=== PATIENT | male | born 1935 | race Caucasian/White ===

== ENCOUNTER → 2018-01-10 10:55 | Outpatient (CLI) | payer MEDICARE, SELFPAY ==
[2018-01-10 12:42] LABS: Add Manual Diff / Slide Review NO; Basophils Percent Auto 0.6 % (0-2); Hematocrit 39.2 % (41-53); Hemoglobin 13.6 g/dL (13.5-17.5); Lymphocytes Percent Auto 27.8 % (25-40); Mean Corpuscular HGB Conc 34.5 % (30-36); Mean Corpuscular Hemoglobin 30.5 PG (26-34); Mean Corpuscular Volume 88.4 fL (80-100); Monocytes Percent Auto 10.1 % (3-14); Neutrophils Absolute Auto 3900 /uL (3000-5900); Neutrophils Percent Auto 60.5 % (50-75); Platelet Count 205 X10^3/uL (150-400); Red Blood Cell Count 4.44 X10^6/uL (4.5-5.9); Red Cell Distribution Width 13.5 % (11.6-14.8); White Blood Cell Count 6.4 X10^3/uL (4.5-11.0)
== END ==
PROVIDERS: PCP Internal Medicine; Visit Provider Internal Medicine
DX: D64.9 Anemia, unspecified (principal); R97.20 Elevated prostate specific antigen [PSA]
CPT/HCPCS: 36415; 85025; G0103

== ENCOUNTER → 2018-01-31 14:35 | Outpatient (CLI) | payer MEDICARE, SELFPAY | PROVIDERS: PCP Internal Medicine; Visit Provider Internal Medicine | DX: R97.20 Elevated prostate specific antigen [PSA] (principal) | CPT/HCPCS: 36415; 84153 ==

== ENCOUNTER 2018-11-01 13:02 | Emergency (ER) | payer MEDICARE, SELFPAY ==
[2018-11-01 13:24] VITALS: BP 139/71; PULSE 66; RESP 17; TEMP 30.6; O2SAT 99
[2018-11-01 13:44] LABS: RBC Urine None Seen (0-5/HPF)
[2018-11-01 14:02] LABS: Bacteria Urine Occasional (0-1); Hyaline Casts Urine 1-5/LPF; WBC Urine 0-1/HPF (0-5/HPF)
[2018-11-01 14:03] LABS: Culture Indicated Urine Cult Not Indicated; Mucus Urine 1+ (Negative)
--- NOTE | 2018-11-01 14:28 | ED.MALEGU ---
HPI - Male Genitourinary <Angela Avendaño PA-C - Last Filed: 11/01/18 17:29> General Chief complaint: Urogenital-Male Stated complaint: States possible uti; frequent urination and burnin Time Seen by Provider: 11/01/18 14:28 Source: patient Mode of arrival: ambulatory Limitations: no limitations History of Present Illness HPI Narrative: This 82-year-old male comes to ED secondary to urinary frequency and burning. This started about a week ago, and he had similar symptoms last year and thought he had a UTI. He had 5 doses of leftover Bactrim and started on that and states that symptoms were significantly improving, but started to come back again in the last day or 2 after he ran out of that. He denies any fever, chills, sweats, he denies any nausea or vomiting. He has not had any hematuria. He states that he thought he should have his urine checked and wondered whether he needs to continue the antibiotic. He denies any other complaints or concerns today. Related Data Home Medications Medication Instructions Recorded Confirmed aspirin 325 mg PO QDAY #0 12/08/16 carvedilol [Coreg] 12.5 mg PO BID #0 12/08/16 carvedilol [Coreg] 25 mg PO BID #0 12/08/16 cyclobenzaprine 5 mg PO DAILY #0 12/08/16 lisinopril 20 mg PO QDAY #0 12/08/16 lisinopril-hydrochlorothiazide 1 tab PO QDAY #0 12/08/16 magnesium oxide 400 mg PO #0 12/08/16 minoxidil 10 mg PO QDAY #0 12/08/16 simvastatin 40 mg PO HS #0 12/08/16 Previous Rx's Medication Instructions Recorded nitrofurantoin monohyd/m-cryst 100 mg PO BID #10 cap 12/08/16 [Macrobid] sulfamethoxazole-trimethoprim 1 tab PO Q12H #10 tab 11/01/18 [Bactrim DS] Allergies Allergy/AdvReac Type Severity Reaction Status Date / Time No Known Allergies Allergy Uncoded 10/30/17 11:56 Review of Systems <Angela Avendaño PA-C - Last Filed: 11/01/18 17:29> Review of Systems ROS Unobtainable: All systems reviewed & are unremarkable except as noted in HPI and below PFSH <Angela Avendaño PA-C - Last Filed: 11/01/18 17:29> Medical History (Updated 11/01/18 @ 14:53 by Angela Avendaño PA-C) No pertinent family history (Chronic) BPH (benign prostatic hyperplasia) (Chronic) HTN (hypertension) (Chronic) Surgical History (Updated 11/01/18 @ 14:53 by Angela Avendaño PA-C) No pertinent past surgical history (Chronic) Social History Smoking Status: Never smoker Social History Smoking Status: Never smoker Exam <Angela Avendaño PA-C - Last Filed: 11/01/18 17:29> Narrative Exam Narrative: GENERAL APPEARANCE: Patient sitting comfortably, in no distress. LUNGS: Clear to auscultation bilaterally. HEART: Rate and rhythm regular without murmur, normal S1 and S2, no S3 or S4. ABDOMEN: Soft, NT, ND, +BS x 4 quadrants, no CVAT. Initial Vital Signs Initial Vital Signs: Vital Signs Temperature 87.1 F L 11/01/18 13:24 Pulse Rate 66 11/01/18 13:24 Respiratory Rate 17 11/01/18 13:24 Blood Pressure 139/71 11/01/18 13:24 Pulse Oximetry 99 11/01/18 13:24 <Anastacio Hernandez DO - Last Filed: 11/01/18 18:08> Initial Vital Signs Initial Vital Signs: Vital Signs Temperature 87.1 F L 11/01/18 13:24 Pulse Rate 66 11/01/18 13:24 Respiratory Rate 17 11/01/18 13:24 Blood Pressure 139/71 11/01/18 13:24 Pulse Oximetry 99 11/01/18 13:24 Course <Angela Avendaño PA-C - Last Filed: 11/01/18 17:29> Orders Ordered: ED Orders 11/01/18 13:43 Urine Microscopic Stat 11/01/18 14:30 Urine Culture Stat Vital Signs - 8 hr 11/01/18 13:24 11/01/18 14:54 Temperature 87.1 F L Pulse Rate 66 60 Respiratory Rate 17 20 Blood Pressure 139/71 148/79 H Pulse Oximetry 99 98 <Anastacio Hernandez DO - Last Filed: 11/01/18 18:08> Orders Ordered: ED Orders 11/01/18 13:43 Urine Microscopic Stat 11/01/18 14:30 Urine Culture Stat Vital Signs - 8 hr 11/01/18 13:24 11/01/18 14:54 Temperature 87.1 F L Pulse Rate 66 60 Respiratory Rate 17 20 Blood Pressure 139/71 148/79 H Pulse Oximetry 99 98 MDM - Male Genitourinary <Angela Avendaño PA-C - Last Filed: 11/01/18 17:29> Lab Data Lab Results 11/01/18 Range/Units 13:43 Urine RBC None seen (0-5/HPF) Urine WBC 0-1/hpf (0-5/HPF) Urine Bacteria Occasional (0-1) (None) Hyaline Casts 1-5/lpf (None) Urine Mucus 1+ H (Negative) Ur Culture Indicated? Cult not indicated Urine Dip Bedside Urine Glucose Negative Bedside Urine Bilirubin - Negative Bedside Urine Ketone - Negative Urine Specific [place] 1.025 Bedside Urine Occult Blood - Negative Bedside Urine pH 6.0 Bedside Urine Protein + 30 Bedside Urine Urobilinogen +/- 1mg Bedside Urine Nitrite - Negative Bedside Urine Leukocytes - Negative Esterase <Anastacio Hernandez DO - Last Filed: 11/01/18 18:08> Lab Data Lab Results 11/01/18 Range/Units 13:43 Urine RBC None seen (0-5/HPF) Urine WBC 0-1/hpf (0-5/HPF) Urine Bacteria Occasional (0-1) (None) Hyaline Casts 1-5/lpf (None) Urine Mucus 1+ H (Negative) Ur Culture Indicated? Cult not indicated Urine Dip Bedside Urine Glucose Negative Bedside Urine Bilirubin - Negative Bedside Urine Ketone - Negative Urine Specific [place] 1.025 Bedside Urine Occult Blood - Negative Bedside Urine pH 6.0 Bedside Urine Protein + 30 Bedside Urine Urobilinogen +/- 1mg Bedside Urine Nitrite - Negative Bedside Urine Leukocytes - Negative Esterase Discharge Plan Departure Patient Disposition: Home Clinical Impression: Urinary tract infection Qualifiers: Urinary tract infection type: acute cystitis Hematuria presence: without hematuria Qualified Code(s): N30.00 - Acute cystitis without hematuria Discharge Date/Time: 11/01/18 14:55 Interventions: ED Discharge Assessment Last Done: 11/01/18 14:54 Instructions: DI for Urinary Tract Infection (UTI) Activity Restrictions/Additional Instructions: Since you have partially treated the infection with the antibiotic that you started, it is possible that this is the reason we did not see bacteria in your urine today. Since it seemed to be helping your symptoms, I have sent in a prescription to [facility] for you to continue for 5 days. Please follow-up with your PCP if your symptoms are not resolved in the next few days on the antibiotic. Please return if you have any new symptoms such as abdominal pain, fever, or vomiting. It was nice to see you today, please give my best to Judith! Prescriptions: New sulfamethoxazole-trimethoprim [Bactrim DS] 800-160 mg tablet 1 tab PO Q12H Qty: 10 RF: 0 No Action carvedilol [Coreg] 25 MG tablet 25 mg PO BID Qty: 0 RF: 0 carvedilol [Coreg] 25 MG tablet 12.5 mg PO BID Qty: 0 RF: 0 aspirin 325 MG tablet 325 mg PO QDAY Qty: 0 RF: 0 minoxidil 10 MG tablet 10 mg PO QDAY Qty: 0 RF: 0 lisinopril-hydrochlorothiazide 20 MG/25 MG tablet 1 tab PO QDAY Qty: 0 RF: 0 lisinopril 20 MG tablet 20 mg PO QDAY Qty: 0 RF: 0 simvastatin 40 MG tablet 40 mg PO HS Qty: 0 RF: 0 cyclobenzaprine 5 MG tablet 5 mg PO DAILY Qty: 0 RF: 0 magnesium oxide 400 MG capsule 400 mg PO Qty: 0 RF: 0 nitrofurantoin monohyd/m-cryst [Macrobid] 100 MG capsule 100 mg PO BID Qty: 10 RF: 0 Referrals: Siddhartha Ferrell MD [Primary Care Provider] - <Anastacio Hernandez DO - Last Filed: 11/01/18 18:08> Cosign ED Attending Rhondaature Attestation: I was immediately available in the department for consultation. Documentation has been reviewed. I agree with assessment and plan.
[2018-11-01 14:54] VITALS: BP 148/79; PULSE 60; RESP 20; O2SAT 98
== END 2018-11-01 14:55 | disposition home or self-care (01) ==
PROVIDERS: Emergency Medicine; Emergency Provider Internal Medicine; PCP Internal Medicine
DX: N30.00 Acute cystitis without hematuria (principal)
CPT/HCPCS: 81003; 81015; 87086; 99282; 99283

== ENCOUNTER → 2019-01-13 11:18 | Outpatient (CLI) | payer MEDICARE, SELFPAY ==
--- NOTE | 2019-01-13 | DI.RAD.S_ITS ---
PROCEDURE: XR FINGER RT MIN 2V INDICATIONS: CONTUSION OF RT MIDDLE FINGER TECHNIQUE: AP hand, 2 views of the third finger(s) acquired. COMPARISON: None. FINDINGS: Bones: No fractures or dislocations. No suspicious bony lesions. Moderate to severe degenerative joint disease at the first carpal metacarpal joint and multiple interphalangeal joints. Soft tissues: Soft calcifications in the proximal second finger. IMPRESSION: 1. No fractures. 2. Moderate to severe degenerative joint disease. 3. Soft tissue foreign body in the proximal second finger. Dictated by: Elsa Torres M.D. on 01/13/2019 at 14:26 Approved by: Elsa Torres M.D. on 01/13/2019 at 14:28
== END ==
PROVIDERS: PCP Internal Medicine; Visit Provider Internal Medicine
DX: S60.031A Contusion of right middle finger without damage to nail, initial encounter (principal); M18.11 Unilateral primary osteoarthritis of first carpometacarpal joint, right hand; M19.041 Primary osteoarthritis, right hand; M79.5 Residual foreign body in soft tissue
CPT/HCPCS: 73140

== ENCOUNTER 2019-01-20 13:23 | Emergency (ER) | payer MEDICARE, SELFPAY ==
[2019-01-20 13:25] VITALS: BP 182/85; PULSE 63; RESP 18; TEMP 36.7; O2SAT 100; BMI 22.3
--- NOTE | 2019-01-20 13:36 | DI.RAD.S_ITS ---
PROCEDURE: XR ELBOW LT MIN 3V INDICATIONS: fall TECHNIQUE: 3 views of the elbow were acquired. COMPARISON: None. FINDINGS: Bones: No acute displaced fractures or dislocations. No suspicious bony lesions. Soft tissues: There is a small elbow joint effusion. There are small ossicles adjacent to the medial and lateral condyles suggesting sequelae of epicondylitis or prior avulsion injuries. IMPRESSION: 1. No acute displaced fracture identified. However, there is a small joint effusion. An occult fracture cannot be excluded. Recommend correlation with clinical exam and consider a repeat study in 7-10 days for further evaluation if indicated. Dictated by: Joaquin Reno M.D. on 01/20/2019 at 14:11 Approved by: Joaquin Reno M.D. on 01/20/2019 at 14:15
--- NOTE | 2019-01-20 13:37 | DI.RAD.S_ITS ---
PROCEDURE: XR RIBS LT MIN 3V W CXR1V INDICATIONS: fall TECHNIQUE: 2 views of the left ribs were acquired, along with a single view chest. COMPARISON: None. FINDINGS: Surgical changes and devices: None. Bones and chest wall: No fractures or dislocations. No suspicious bony lesions. Overlying soft tissues appear unremarkable. Lungs and pleura: No pleural effusions or pneumothorax. Lungs appear clear. Mediastinum: Mediastinal contours appear normal. Heart size is normal. IMPRESSION: No fractures, no pneumothorax identified. If unusual symptoms persist delayed plain films may allow detection of a nondisplaced fracture currently not visible. Dictated by: Andi Mortensen M.D. on 01/20/2019 at 14:12 Approved by: Andi Mortensen M.D. on 01/20/2019 at 14:19
[2019-01-20 14:30] VITALS: BP 145/76; PULSE 66; RESP 16; O2SAT 98
--- NOTE | 2019-01-20 14:34 | ED.FALL ---
HPI - Fall General Chief Complaint: Fall Stated Complaint: GLF Lt arm, wrist, chest, ribs Time Seen by Provider: 01/20/19 13:35 Source: patient and family Mode of arrival: ambulatory Limitations: no limitations History of Present Illness HPI Narrative: Patient comes to the emergency department complaining of left elbow and left rib pain after tripping over a wire in his garden and falling. Patient states he did not hit his head or lose consciousness. He denies any spinal pain. No difficulty breathing. No abdominal pain. No visual changes or neurologic deficits. Patient states he otherwise feels well. No other complaints at this time. Related Data Home Medications Medication Instructions Recorded Confirmed aspirin 325 mg PO QWEEK #0 12/08/16 01/20/19 carvedilol [Coreg] 25 mg PO BID #0 12/08/16 01/20/19 lisinopril 20 mg PO QPM #0 12/08/16 01/20/19 lisinopril-hydrochlorothiazide 1 tab PO DAILY #0 12/08/16 01/20/19 minoxidil 10 mg PO QPM #0 12/08/16 01/20/19 simvastatin 40 mg PO BEDTIME #0 12/08/16 01/20/19 alfuzosin 10 mg PO DAILY 01/20/19 01/20/19 magnesium oxide 500 mg PO DAILY 01/20/19 01/20/19 multivitamin 1 tab PO DAILY 01/20/19 01/20/19 Allergies Allergy/AdvReac Type Severity Reaction Status Date / Time No Known Allergies Allergy Uncoded 10/30/17 11:56 Review of Systems Constitutional Denies chills, Denies fever(s), Denies lethargy and Denies weakness Eyes Denies change in vision, Denies eye discharge, Denies irritation and Denies loss of vision ENT Ears, Nose, Mouth, and Throat: Denies change in voice, Denies neck pain and Denies sore throat Cardiovascular Reports chest pain (Left lateral chest), Denies irregular heart rhythm, Denies lightheadedness, Denies palpitations, Denies dyspnea, Denies dyspnea on exertion and Denies orthopnea Respiratory Denies cough, Denies dyspnea, Denies dyspnea on exertion and Denies wheezing Gastrointestinal Gastrointestinal: Denies abdominal pain, Denies change in bowel habits, Denies diarrhea, Denies nausea and Denies vomiting Genitourinary Denies hematuria, Denies flank pain, Denies urinary incontinence and Denies urinary urgency Musculoskeletal Denies neck pain Integumentary/Breasts Denies pruritus, Denies erythema, Denies rash and Denies wounds Neurologic Denies confusion, Denies loss of vision and Denies weakness Psychiatric Denies anxiety, Denies confusion, Denies depression, Denies homicidal ideation and Denies suicidal ideation Endocrine Denies palpitations Hematologic/Lymphatic Denies easy bruising Allergic/Immunologic Denies wheezing Exam Initial Vital Signs Initial Vital Signs: Vital Signs Temperature 98.0 F 01/20/19 13:25 Pulse Rate 63 01/20/19 13:25 Respiratory Rate 18 01/20/19 13:25 Blood Pressure 182/85 H 01/20/19 13:25 Pulse Oximetry 100 01/20/19 13:25 Const General: cooperative and well developed Nutritional Appearance: well nourished Orientation: alert, awake, oriented x3 and not confused HENPR Head: normocephalic and atraumatic Ears: external ears normal Nose: external nose normal and No nasal discharge Face and sinus: face symmetric and No dry mucous membranes Mouth: oral mucosae normal and moist mucous membranes Teeth and gingiva: dentition normal Eyes General: appearance normal, both eyes and all related structures Eyelids: eyelids normal Conjunctivae: conjunctivae normal Sclera: sclerae normal Pupils: PERRL EOM: EOM intact bilaterally Neck Neck: normal visual inspection, trachea midline, No lymphadenopathy, No midline deformity and No JVD Lymphatic: No lymphedema Other: No C-spine tenderness or step-off Chest Chest: normal inspection of the chest Resp Effort & Inspection: normal respiratory effort, able to speak in complete sentences, no respiratory distress and no use of accessory muscles Auscultation: clear to auscultation bilaterally, no rales, no rhonchi and no wheezes Cardio Rate: regular rate Rhythm: regular rhythm Heart Sounds: no click, no gallops, no murmurs and no rubs Pulses: normal peripheral pulses GI Inspection: non-distended Palpation: soft, no hepatosplenomegaly, No guarding, No pulsatile mass and No tender Auscultation: normal bowel sounds Back/Spine/Pelvis Back: No CVA tenderness Cervical Spine: cervical ROM normal and No pain with cervical ROM Thoracic/Lumbar Spine: thoracic and lumbar spine normal to inspection Other: No tenderness or step-off any level of the spine. Skin General: no rashes or lesions noted, No jaundice and No petechiae Neuro General: alert, oriented x3, gait normal and no focal motor deficits Speech: speech normal Extrem General: full ROM, no clubbing, cyanosis or edema, no pedal edema and no calf tenderness Other: Patient has mild tenderness over his left lateral elbow. He has full range of motion. Psych Appearance: well kempt Mental Status: mental status grossly normal Attitude: cooperative Thought Content: normal and suicidality Judgment: judgment good [facility] Medical History No pertinent family history (Chronic) BPH (benign prostatic hyperplasia) (Chronic) HTN (hypertension) (Chronic) Surgical History No pertinent past surgical history (Chronic) Social History Smoking Status: Never smoker Social History Smoking Status: Never smoker Course Course Narrative: Patient overall appeared well. X-rays of his left elbow and his chest were unremarkable. I felt the patient was stable for discharge. We have discussed home management and pain, as well as usual indications for return. Orders Ordered: ED Orders 01/20/19 13:36 XR elbow LT min 3V Stat 01/20/19 13:37 XR ribs LT min 3V w CXR1V Stat Discontinued Medications Diphtheria/Tetanus/Acell Pertussis (Adacel) 0.5 ml IM .ONCE ONE Stop: 01/20/19 14:59 Last Admin: 01/20/19 14:59 Dose: 0.5 ml Vital Signs - 8 hr 01/20/19 13:25 01/20/19 14:30 01/20/19 15:25 Temperature 98.0 F Pulse Rate 63 66 66 Respiratory Rate 18 16 16 Blood Pressure 182/85 H 158/76 H Blood Pressure [Left Arm] 145/76 H Pulse Oximetry 100 98 99 MDM - Fall Medical Records Attestation: I reviewed the patient's medical records. Imaging Data Rib x-ray series: Radiologist's impression: [address] [address] XRay Report Signed Patient: Vic Gomez [facility]#: [id number] : 5Acct:[id number] Age/Sex: 83 / MDate of Service: 01/20/19 Loc: ED Accession Number: [id number] Procedure: XR ribs LT min 3V w CXR1V Ordering Provider: Louise Thomas MD PROCEDURE: XR RIBS LT MIN 3V W CXR1V INDICATIONS: fall TECHNIQUE: 2 views of the left ribs were acquired, along with a single view chest. COMPARISON: None. FINDINGS: Surgical changes and devices: None. Bones and chest wall: No fractures or dislocations. No suspicious bony lesions. Overlying soft tissues appear unremarkable. Lungs and pleura: No pleural effusions or pneumothorax. Lungs appear clear. Mediastinum: Mediastinal contours appear normal. Heart size is normal. IMPRESSION: No fractures, no pneumothorax identified. If unusual symptoms persist delayed plain films may allow detection of a nondisplaced fracture currently not visible. Dictated by: Andi Mortensen M.D. on 01/20/2019 at 14:12 Approved by: Andi Mortensen M.D. on 01/20/2019 at 14:19 Elbow x-ray: Radiologist's impression: PROCEDURE: XR ELBOW LT MIN 3V INDICATIONS: fall TECHNIQUE: 3 views of the elbow were acquired. COMPARISON: None. FINDINGS: Bones: No acute displaced fractures or dislocations. No suspicious bony lesions. Soft tissues: There is a small elbow joint effusion. There are small ossicles adjacent to the medial and lateral condyles suggesting sequelae of epicondylitis or prior avulsion injuries. IMPRESSION: 1. No acute displaced fracture identified. However, there is a small joint effusion. An occult fracture cannot be excluded. Recommend correlation with clinical exam and consider a repeat study in 7-10 days for further evaluation if indicated. Dictated by: Joaquin Reno M.D. on 01/20/2019 at 14:11 Approved by: Joaquin Reno M.D. on 01/20/2019 at 14:15 Discharge Plan Departure Patient Disposition: Home Clinical Impression: Fall Qualifiers: Encounter type: initial encounter Qualified Code(s): W19.XXXA - Unspecified fall, initial encounter Discharge Date/Time: 01/20/19 15:25 Interventions: ED Discharge Assessment Last Done: 07/02/19 15:25 Activity Restrictions/Additional Instructions: Your x-rays all look good. Please keep your wounds clean and dry until a dry scab has formed over the wound. You may then leave the wound open to air. If you begin to notice redness and swelling spreading away from the wounds, then please seek further medical evaluation. Prescriptions: No Action carvedilol [Coreg] 25 MG tablet 25 mg PO BID Qty: 0 RF: 0 aspirin 325 MG tablet 325 mg PO QWEEK Qty: 0 RF: 0 minoxidil 10 MG tablet 10 mg PO QPM Qty: 0 RF: 0 lisinopril-hydrochlorothiazide 20 MG/25 MG tablet 1 tab PO DAILY Qty: 0 RF: 0 lisinopril 20 MG tablet 20 mg PO QPM Qty: 0 RF: 0 simvastatin 40 MG tablet 40 mg PO BEDTIME Qty: 0 RF: 0 multivitamin Tablet 1 tab PO DAILY RF: 0 magnesium oxide 500 mg Tablet 500 mg PO DAILY RF: 0 alfuzosin 10 mg Tablet Extended Release 24 Hr 10 mg PO DAILY RF: 0 Referrals: Vic Chan MD [Primary Care Provider] -
--- NOTE | 2019-01-20 14:38 | ED_ITS ---
HPI - Fall General Chief Complaint: Fall Stated Complaint: GLF Lt arm, wrist, chest, ribs Time Seen by Provider: 01/20/19 13:35 Source: patient and family Mode of arrival: ambulatory Limitations: no limitations History of Present Illness HPI Narrative: Patient comes to the emergency department complaining of left elbow and left rib pain after tripping over a wire in his garden and falling. Patient states he did not hit his head or lose consciousness. He denies any spinal pain. No difficulty breathing. No abdominal pain. No visual changes or neurologic deficits. Patient states he otherwise feels well. No other complaints at this time. Related Data Home Medications Medication Instructions Recorded Confirmed aspirin 325 mg PO QWEEK #0 12/08/16 01/20/19 carvedilol [Coreg] 25 mg PO BID #0 12/08/16 01/20/19 lisinopril 20 mg PO QPM #0 12/08/16 01/20/19 lisinopril-hydrochlorothiazide 1 tab PO DAILY #0 12/08/16 01/20/19 minoxidil 10 mg PO QPM #0 12/08/16 01/20/19 simvastatin 40 mg PO BEDTIME #0 12/08/16 01/20/19 alfuzosin 10 mg PO DAILY 01/20/19 01/20/19 magnesium oxide 500 mg PO DAILY 01/20/19 01/20/19 multivitamin 1 tab PO DAILY 01/20/19 01/20/19 Allergies Allergy/AdvReac Type Severity Reaction Status Date / Time No Known Allergies Allergy Uncoded 10/30/17 11:56 Review of Systems Constitutional Denies chills, Denies fever(s), Denies lethargy and Denies weakness Eyes Denies change in vision, Denies eye discharge, Denies irritation and Denies loss of vision ENT Ears, Nose, Mouth, and Throat: Denies change in voice, Denies neck pain and Denies sore throat Cardiovascular Reports chest pain (Left lateral chest), Denies irregular heart rhythm, Denies lightheadedness, Denies palpitations, Denies dyspnea, Denies dyspnea on exertion and Denies orthopnea Respiratory Denies cough, Denies dyspnea, Denies dyspnea on exertion and Denies wheezing Gastrointestinal Gastrointestinal: Denies abdominal pain, Denies change in bowel habits, Denies diarrhea, Denies nausea and Denies vomiting Genitourinary Denies hematuria, Denies flank pain, Denies urinary incontinence and Denies uri nary urgency Musculoskeletal Denies neck pain Integumentary/Breasts Denies pruritus, Denies erythema, Denies rash and Denies wounds Neurologic Denies confusion, Denies loss of vision and Denies weakness Psychiatric Denies anxiety, Denies confusion, Denies depression, Denies homicidal ideation and Denies suicidal ideation Endocrine Denies palpitations Hematologic/Lymphatic Denies easy bruising Allergic/Immunologic Denies wheezing Exam Initial Vital Signs Initial Vital Signs: Vital Signs Temperature 98.0 F 01/20/19 13:25 Pulse Rate 63 01/20/19 13:25 Respiratory Rate 18 01/20/19 13:25 Blood Pressure 182/85 H 01/20/19 13:25 Pulse Oximetry 100 01/20/19 13:25 Const General: cooperative and well developed Nutritional Appearance: well nourished Orientation: alert, awake, oriented x3 and not confused HENMT Head: normocephalic and atraumatic Ears: external ears normal Nose: external nose normal and No nasal discharge Face and sinus: face symmetric and No dry mucous membranes Mouth: oral mucosae normal and moist mucous membranes Teeth and gingiva: dentition normal Eyes General: appearance normal, both eyes and all related structures Eyelids: eyelids normal Conjunctivae: conjunctivae normal Sclera: sclerae normal Pupils: PERRL EOM: EOM intact bilaterally Neck Neck: normal visual inspection, trachea midline, No lymphadenopathy, No midline deformity and No JVD Lymphatic: No lymphedema Other: No C-spine tenderness or step-off Chest Chest: normal inspection of the chest Resp Effort & Inspection: normal respiratory effort, able to speak in complete sentences, no respiratory distress and no use of accessory muscles Auscultation: clear to auscultation bilaterally, no rales, no rhonchi and no wheezes Cardio Rate: regular rate Rhythm: regular rhythm Heart Sounds: no click, no gallops, no murmurs and no rubs Pulses: normal peripheral pulses GI Inspection: non-distended Palpation: soft, no hepatosplenomegaly, No guarding, No pulsatile mass and No tender Auscultation: normal bowel sounds Back/Spine/Pelvis Back: No CVA tenderness Cervical Spine: cervical ROM normal and No pain with cervical ROM Thoracic/Lumbar Spine: thoracic and lumbar spine normal to inspection Other: No tenderness or step-off any level of the spine. Skin General: no rashes or lesions noted, No jaundice and No petechiae Neuro General: alert, oriented x3, gait normal and no focal motor deficits Speech: speech normal Extrem General: full ROM, no clubbing, cyanosis or edema, no pedal edema and no calf tenderness Other: Patient has mild tenderness over his left lateral elbow. He has full range of motion. Psych Appearance: well kempt Mental Status: mental status grossly normal Attitude: cooperative Thought Content: normal and suicidality Judgment: judgment good [facility] Medical History No pertinent family history (Chronic) BPH (benign prostatic hyperplasia) (Chronic) HTN (hypertension) (Chronic) Surgical History No pertinent past surgical history (Chronic) Social History Smoking Status: Never smoker Social History Smoking Status: Never smoker Course Course Narrative: Patient overall appeared well. X-rays of his left elbow and his chest were unremarkable. I felt the patient was stable for discharge. We have discussed home management and pain, as well as usual indications for return. Orders Ordered: ED Orders 01/20/19 13:36 XR elbow LT min 3V Stat 01/20/19 13:37 XR ribs LT min 3V w CXR1V Stat Discontinued Medications Diphtheria/Tetanus/Acell Pertussis (Adacel) 0.5 ml IM .ONCE ONE Stop: 01/20/19 14:59 Last Admin: 01/20/19 14:59 Dose: 0.5 ml Vital Signs - 8 hr 01/20/19 13:25 01/20/19 14:30 01/20/19 15:25 Temperature 98.0 F Pulse Rate 63 66 66 Respiratory Rate 18 16 16 Blood Pressure 182/85 H 158/76 H Blood Pressure [Left Arm] 145/76 H Pulse Oximetry 100 98 99 MDM - Fall Medical Records Attestation: I reviewed the patient's medical records. Imaging Data Rib x-ray series: Radiologist's impression: [address] [address] XRay Report Signed Patient: Vic Gomez [facility]#: [id number] : 5Acct:[id number] Age/Sex: 83 / MDate of Service: 01/20/19 Loc: ED Accession Number: [id number] Procedure: XR ribs LT min 3V w CXR1V Ordering Provider: Louise Thomas MD PROCEDURE: XR RIBS LT MIN 3V W CXR1V INDICATIONS: fall TECHNIQUE: 2 views of the left ribs were acquired, along with a single view chest. COMPARISON: None. FINDINGS: Surgical changes and devices: None. Bones and chest wall: No fractures or dislocations. No suspicious bony lesions. Overlying soft tissues appear unremarkable. Lungs and pleura: No pleural effusions or pneumothorax. Lungs appear clear. Mediastinum: Mediastinal contours appear normal. Heart size is normal. IMPRESSION: No fractures, no pneumothorax identified. If unusual symptoms persist delayed plain films may allow detection of a nondisplaced fracture currently not visible. Dictated by: Andi Mortensen M.D. on 01/20/2019 at 14:12 Approved by: Andi Mortensen M.D. on 01/20/2019 at 14:19 Elbow x-ray: Radiologist's impression: PROCEDURE: XR ELBOW LT MIN 3V INDICATIONS: fall TECHNIQUE: 3 views of the elbow were acquired. COMPARISON: None. FINDINGS: Bones: No acute displaced fractures or dislocations. No suspicious bony lesions. Soft tissues: There is a small elbow joint effusion. There are small ossicles adjacent to the medial and lateral condyles suggesting sequelae of epicondylitis or prior avulsion injuries. IMPRESSION: 1. No acute displaced fracture identified. However, there is a small joint effusion. An occult fracture cannot be excluded. Recommend correlation with clinical exam and consider a repeat study in 7-10 days for further evaluation if indicated. Dictated by: Joaquin Reno M.D. on 01/20/2019 at 14:11 Approved by: Joaquin Reno M.D. on 01/20/2019 at 14:15 Discharge Plan Departure Patient Disposition: Home Clinical Impression: Fall Qualifiers: Encounter type: initial encounter Qualified Code(s): W19.XXXA - Unspecified fall, initial encounter Discharge Date/Time: 01/20/19 15:25 Interventions: ED Discharge Assessment Last Done: 01/20/19 15:25 Activity Restrictions/Additional Instructions: Your x-rays all look good. Please keep your wounds clean and dry until a dry scab has formed over the wound. You may then leave the wound open to air. If you begin to notice redness and swelling spreading away from the wounds, then please seek further medical evaluation. Prescriptions: No Action carvedilol [Coreg] 25 MG tablet 25 mg PO BID Qty: 0 RF: 0 aspirin 325 MG tablet 325 mg PO QWEEK Qty: 0 RF: 0 minoxidil 10 MG tablet 10 mg PO QPM Qty: 0 RF: 0 lisinopril-hydrochlorothiazide 20 MG/25 MG tablet 1 tab PO DAILY Qty: 0 RF: 0 lisinopril 20 MG tablet 20 mg PO QPM Qty: 0 RF: 0 simvastatin 40 MG tablet 40 mg PO BEDTIME Qty: 0 RF: 0 multivitamin Tablet 1 tab PO DAILY RF: 0 magnesium oxide 500 mg Tablet 500 mg PO DAILY RF: 0 alfuzosin 10 mg Tablet Extended Release 24 Hr 10 mg PO DAILY RF: 0 Referrals: Vic Chan MD [Primary Care Provider] -
[2019-01-20] MEDS: TET,DIPH,PERTUSS(ACELL),VAC/PF 0.5 ML SYRINGE IM (14:59)
[2019-01-20 15:25] VITALS: BP 158/76; PULSE 66; RESP 16; O2SAT 99
== END 2019-01-20 15:25 | disposition home or self-care (01) ==
PROVIDERS: Emergency Provider Emergency Medicine; PCP Internal Medicine
DX: M25.522 Pain in left elbow (principal); R07.81 Pleurodynia; W01.0XXA Fall on same level from slipping, tripping and stumbling without subsequent striking against object, initial encounter; Y93.H2 Activity, gardening and landscaping; Z23 Encounter for immunization
CPT/HCPCS: 71101; 73080; 90471; 99283; 90715

== ENCOUNTER → 2019-08-03 16:19 | Outpatient (CLI) | payer MEDICARE, SELFPAY ==
[2019-08-03 17:55] LABS: Aspartate Aminotransferase 27 IU/L (17-59); BUN Creatinine Ratio 31.7 (6-22); Blood Urea Nitrogen 19 mg/dL (9-20); Calcium 9.6 mg/dL (8.4-10.2); Carbon Dioxide 28 mmol/L (22-32); Chloride 100 mmol/L (98-107); Cholesterol 178 mg/dL (140-199); Estimated Glomerular Filt Rate > 60.0 mL/min (>60); Glucose 98 mg/dL (80-110); HDL Cholesterol 51 mg/dL (40-60); HEMOLYSIS < 15 (0-50); LDL Cholesterol Calculated 104 mg/dL (<100); Potassium 4.1 mmol/L (3.4-5.1); Sodium 135 mmol/L (137-145); Triglycerides 115 mg/dL (35-150)
[2019-08-06 16:53] LABS: PSA Free % 21 % (calc) (> 25); PSA, Total 3.8 ng/mL (< 4.1)
== END ==
PROVIDERS: PCP Internal Medicine; Visit Provider Internal Medicine
DX: Z12.5 Encounter for screening for malignant neoplasm of prostate (principal)
CPT/HCPCS: 80048; 80061; 84153; 84154; 84450

== ENCOUNTER → 2020-02-01 11:55 | Outpatient (CLI) | payer MEDICARE, SELFPAY ==
[2020-02-01 13:08] LABS: Aspartate Aminotransferase 28 IU/L (17-59); BUN Creatinine Ratio 33.3 (6-22); Blood Urea Nitrogen 23 mg/dL (9-20); Calcium 9.6 mg/dL (8.4-10.2); Carbon Dioxide 29 mmol/L (22-32); Chloride 102 mmol/L (98-107); Cholesterol 165 mg/dL (140-199); Estimated Glomerular Filt Rate > 60.0 mL/min (>60); Glucose 108 mg/dL (80-110); HDL Cholesterol 54 mg/dL (40-60); HEMOLYSIS < 15 (0-50); LDL Cholesterol Calculated 97 mg/dL (<100); Potassium 4.4 mmol/L (3.4-5.1); Sodium 136 mmol/L (137-145); Triglycerides 68 mg/dL (35-150)
[2020-02-01 13:36] LABS: Prostate Specific Antigen 5.18 ng/mL (0.10-4.00)
== END ==
PROVIDERS: PCP Internal Medicine; Referring Provider Internal Medicine; Visit Provider Internal Medicine
DX: I10 Essential (primary) hypertension (principal); E78.2 Mixed hyperlipidemia; R97.20 Elevated prostate specific antigen [PSA]
CPT/HCPCS: 36415; 80048; 80061; 84153; 84450

== ENCOUNTER → 2020-06-09 19:01 | Outpatient (ROUT) | payer MEDICARE, SELFPAY ==
[2020-06-09 19:54] LABS: Prostate Specific Antigen 4.69 ng/mL (0.10-4.00)
[2020-06-09 19:57] LABS: TSH w/ Reflex to FT4 2.81 uIU/mL (0.47-4.68)
[2020-06-09 20:13] LABS: Vitamin B12 578 pg/mL (239-931)
== END ==
PROVIDERS: PCP Internal Medicine; Visit Provider Internal Medicine
DX: E03.9 Hypothyroidism, unspecified (principal); E53.8 Deficiency of other specified B group vitamins; N40.1 Benign prostatic hyperplasia with lower urinary tract symptoms
CPT/HCPCS: 82607; 84153; 84443

== ENCOUNTER → 2020-12-05 14:13 | Outpatient (CLI) | payer MEDICARE, SELFPAY ==
[2020-12-05 14:57] LABS: Add Manual Diff / Slide Review NO; Basophils Absolute Auto 0 /uL (0-100); Basophils Percent Auto 0.5 % (0-2); Eosinophils Absolute Auto 100 /uL (0-450); Eosinophils Percent Auto 1.6 % (2-4); Hematocrit 40.7 % (41-53); Hemoglobin 13.9 g/dL (13.5-17.5); Lymphocytes Absolute Auto 2200 /uL (1100-4500); Lymphocytes Percent Auto 34.2 % (25-40); Mean Corpuscular HGB Conc 34.2 % (30-36); Mean Corpuscular Hemoglobin 30.8 PG (26-34); Mean Corpuscular Volume 90.2 fL (80-100); Monocytes Absolute Auto 600 /uL (0-900); Monocytes Percent Auto 8.7 % (3-14); Neutrophils Absolute Auto 3600 /uL (1500-7000); Platelet Count 219 X10^3/uL (150-400); Red Blood Cell Count 4.52 X10^6/uL (4.5-5.9); Red Cell Distribution Width 13.9 % (11.6-14.8); White Blood Cell Count 6.5 X10^3/uL (4.5-11.0)
[2020-12-05 15:17] LABS: Alanine Aminotransferase 16 IU/L (<50); Albumin 4.6 g/dL (3.5-5.0); Albumin Globulin Ratio 1.6 (1.0-2.8); Alkaline Phosphatase 41 U/L (38-126); Aspartate Aminotransferase 26 IU/L (17-59); BUN Creatinine Ratio 32.1 (6-22); Bilirubin Total 0.6 mg/dL (0.2-1.3); Blood Urea Nitrogen 18 mg/dL (9-20); Calcium 9.8 mg/dL (8.4-10.2); Carbon Dioxide 27 mmol/L (22-32); Chloride 102 mmol/L (98-107); Estimated Glomerular Filt Rate > 60.0 mL/min (>60); Globulin 2.9 g/dL (1.7-4.1); Glucose 105 mg/dL (80-110); HEMOLYSIS < 15 (0-50); Sodium 137 mmol/L (137-145); Total Protein 7.5 g/dL (6.3-8.2)
[2020-12-05 15:19] LABS: Hemoglobin A1C% w Est Avg Glu 5.1 % (4.0-6.0)
[2020-12-05 16:02] LABS: Vitamin B12 491 pg/mL (239-931)
[2020-12-05 17:03] LABS: TSH w/ Reflex to FT4 1.89 uIU/mL (0.47-4.68)
[2020-12-06 16:58] LABS: Cholesterol 168 mg/dL (140-199); HDL Cholesterol 61 mg/dL (40-60); LDL Cholesterol Calculated 86 mg/dL (<100); Triglycerides 106 mg/dL (35-150)
== END ==
PROVIDERS: PCP Family Medicine; Referring Provider Family Medicine; Visit Provider Family Medicine
DX: I10 Essential (primary) hypertension (principal); R73.03 Prediabetes; K21.9 Gastro-esophageal reflux disease without esophagitis; E78.2 Mixed hyperlipidemia
CPT/HCPCS: 36415; 80053; 80061; 82607; 83036; 84443; 85025

== ENCOUNTER → 2021-04-04 09:11 | Outpatient (CLI) | payer MEDICARE, SELFPAY ==
[2021-04-04 10:09] LABS: Add Manual Diff / Slide Review NO; Basophils Absolute Auto 0 /uL (0-100); Basophils Percent Auto 0.4 % (0-2); Eosinophils Absolute Auto 100 /uL (0-450); Eosinophils Percent Auto 1.5 % (2-4); Hematocrit 40.4 % (41-53); Hemoglobin 13.7 g/dL (13.5-17.5); Lymphocytes Absolute Auto 2100 /uL (1100-4500); Lymphocytes Percent Auto 35.7 % (25-40); Mean Corpuscular Hemoglobin 29.8 PG (26-34); Mean Corpuscular Volume 87.7 fL (80-100); Monocytes Absolute Auto 500 /uL (0-900); Monocytes Percent Auto 8.2 % (3-14); Neutrophils Absolute Auto 3200 /uL (1500-7000); Neutrophils Percent Auto 54.2 % (50-75); Platelet Count 221 X10^3/uL (150-400); Red Cell Distribution Width 12.9 % (11.6-14.8)
[2021-04-04 10:20] LABS: Hemoglobin A1C% w Est Avg Glu 5.3 % (4.0-6.0)
[2021-04-04 10:48] LABS: Alanine Aminotransferase 16 IU/L (<50); Albumin 4.3 g/dL (3.5-5.0); Albumin Globulin Ratio 1.8 (1.0-2.8); Alkaline Phosphatase 39 U/L (38-126); Aspartate Aminotransferase 23 IU/L (17-59); BUN Creatinine Ratio 29.3 (6-22); Bilirubin Total 0.7 mg/dL (0.2-1.3); Blood Urea Nitrogen 17 mg/dL (9-20); Carbon Dioxide 29 mmol/L (22-32); Chloride 104 mmol/L (98-107); Estimated Glomerular Filt Rate > 60.0 mL/min (>60); Globulin 2.4 g/dL (1.7-4.1); Glucose 100 mg/dL (80-110); HEMOLYSIS < 15 (0-50); Potassium 4.5 mmol/L (3.4-5.1); Sodium 139 mmol/L (137-145); Total Protein 6.7 g/dL (6.3-8.2)
[2021-04-04 11:18] LABS: Prostate Specific Antigen 4.42 ng/mL (0.10-4.00)
== END ==
PROVIDERS: PCP Family Medicine; Referring Provider Family Medicine; Visit Provider Family Medicine
DX: I10 Essential (primary) hypertension (principal); N40.0 Benign prostatic hyperplasia without lower urinary tract symptoms; R73.9 Hyperglycemia, unspecified; R73.03 Prediabetes
CPT/HCPCS: 36415; 80053; 83036; 84153; 85025

== ENCOUNTER → 2021-06-07 12:08 | Outpatient (CLI) | payer MEDICARE, SELFPAY ==
--- NOTE | 2021-06-07 12:10 | DI.MRI.S_ITS ---
PROCEDURE: MR PELIS WO/W CON INDICATIONS: Prostate mass/ median lobe(giant) TECHNIQUE: Coronal HASTE, axial T1 FSE with fat saturation, 3-plane nonbreath-hold T2 FSE. After the administration of contrast, dynamic axial, delayed axial and coronal VIBE or 2-D FLASH with fat saturation through the pelvis. Optional diffusion weighted imaging and ADC may be performed. COMPARISON: None. FINDINGS: Image quality: Diffusion weighted and dynamic contrast enhanced images are diagnostic. Prostate: Gland size demonstrates marked enlargement of the median lobe resulting in an overall gland measurement of 9.4 cm in the craniocaudal dimension, 5.7 cm transversely, and 4.4 cm in AP diameter; ellipsoid gland volume is 122 mL. Lesion size(s): Lesion 1: 1.3 cm Lesion location(s) (sector): Lesion 1: Left anterior transition zone near the gland base Lesion description: Lesion 1: Irregular shape, indistinct margin, without association with the capsule. T2 weighted imaging (T2WI) morphology score: Lesion 1: Four Diffusion weighted imaging (DWI) morphology score: Lesion 1: Two Dynamic contrast enhancement (DCE): Lesion 1: Absent Lesion PI-RADS score: Lesion 1: PI-RADS 4 Genitourinary system: The urinary bladder is mildly enlarged with an irregular wall demonstrating several small diverticula. There is a 1.6 cm posterior urethral diverticulum/prostatic utricle which may contain a dependently layering stone. Distal ureters are normal.. Bowel and peritoneum: No pathologic free pelvic fluid. Inferior colon and small bowel loops are normal in caliber. Diverticulosis of the sigmoid colon is seen. Nodes and vessels: No pelvic or inguinal adenopathy by size criteria. Iliac vessels are normal in caliber. Soft tissues: No inguinal hernias. Bones: Marrow demonstrates normal overall signal, without lesions to suggest metastases. IMPRESSION: 1. Significant enlargement of the median lobe of the prostate gland. 2. 1.3 cm PI-RADS 4 lesion in the left anterior transition zone at the gland base. 3. Heterogeneous morphology of BPH throughout the transition zone. 4. 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 Dictated by: Holli Lopez M.D. on 06/07/2021 at 14:34 Approved by: Holli Lopez M.D. on 06/07/2021 at 16:26
== END ==
PROVIDERS: PCP Family Medicine; Referring Provider Urology; Visit Provider Urology
DX: D40.0 Neoplasm of uncertain behavior of prostate (principal); N36.1 Urethral diverticulum
CPT/HCPCS: 72197; A9579

== ENCOUNTER → 2021-06-13 14:36 | Outpatient (CLI) | payer MEDICARE, SELFPAY ==
[2021-06-13 17:56] LABS: Prostate Specific Antigen 6.11 ng/mL (0.10-4.00)
== END ==
PROVIDERS: PCP Family Medicine; Referring Provider Urology; Visit Provider Urology
DX: N42.89 Other specified disorders of prostate (principal); R33.9 Retention of urine, unspecified; R39.13 Splitting of urinary stream; R39.11 Hesitancy of micturition; N39.41 Urge incontinence
CPT/HCPCS: 36415; 84153; 99214

== ENCOUNTER → 2021-07-18 12:09 | Outpatient (CLI) | payer MEDICARE, SELFPAY ==
--- NOTE | 2021-07-18 12:11 | DI.RAD.S_ITS ---
PROCEDURE: XR DEXA AXIAL SKELETON INDICATIONS: Prostate cancer androgen deprivation therapy COMPARISON: None. FINDINGS: This blank DEXA report has been sent in error by the PACS system. The correct and complete report will be forthcoming in 1-2 days. Thank you for your patience and understanding. Dictated by: Veronica Wang MD, PhD on 07/18/2021 at 13:53 Approved by: Veronica Wang MD, PhD on 07/18/2021 at 13:53
== END ==
PROVIDERS: PCP Family Medicine; Referring Provider Urology; Visit Provider Urology
DX: C61 Malignant neoplasm of prostate (principal); M81.0 Age-related osteoporosis without current pathological fracture
CPT/HCPCS: 77080

== ENCOUNTER → 2021-07-27 12:41 | Outpatient (CLI) | payer MEDICARE, SELFPAY ==
--- NOTE | 2021-07-27 12:42 | DI.NM.S_ITS ---
PROCEDURE: NM BONE SCAN WHOLE BODY RADIOPHARMACEUTICAL: 20 mCi Tc-99m MDP IV. INDICATIONS: New diagnosis adenocarcinoma of the prostate TECHNIQUE: Delayed whole-body scintigrams were obtained approximately 3-4 hours after intravenous injection of radiotracer. Anterior and posterior views were acquired from vertex to feet. Additional left and right oblique views of the pelvis were obtained. COMPARISON: None. FINDINGS: Degenerative uptake of radiotracer at the acromioclavicular, glenohumeral, knee, and left 1st metatarsophalangeal joint. No increased radiotracer uptake to indicate metastasis. IMPRESSION: Multifocal osteoarthritis. No evidence of metastatic disease. Dictated by: Constantino Reed M.D. on 07/31/2021 at 13:08 Approved by: Constantino Reed M.D. on 07/31/2021 at 13:09
== END ==
PROVIDERS: PCP Family Medicine; Referring Provider Urology; Visit Provider Urology
DX: C61 Malignant neoplasm of prostate (principal); M15.0 Primary generalized (osteo)arthritis
CPT/HCPCS: 78306; A9503

== ENCOUNTER → 2021-08-31 09:06 | Outpatient (CLI) | payer MEDICARE, SELFPAY ==
[2021-08-31 10:21] LABS: Add Manual Diff / Slide Review NO; Basophils Absolute Auto 0 /uL (0-100); Basophils Percent Auto 0.5 % (0-2); Eosinophils Absolute Auto 100 /uL (0-450); Eosinophils Percent Auto 1.5 % (2-4); Hematocrit 42.1 % (41-53); Hemoglobin 14.2 g/dL (13.5-17.5); Lymphocytes Absolute Auto 2000 /uL (1100-4500); Lymphocytes Percent Auto 32.7 % (25-40); Mean Corpuscular HGB Conc 33.6 % (30-36); Mean Corpuscular Hemoglobin 28.3 PG (26-34); Mean Corpuscular Volume 84.1 fL (80-100); Monocytes Absolute Auto 500 /uL (0-900); Monocytes Percent Auto 7.6 % (3-14); Neutrophils Absolute Auto 3500 /uL (1500-7000); Neutrophils Percent Auto 57.7 % (50-75); Platelet Count 232 X10^3/uL (150-400); Red Cell Distribution Width 14.4 % (11.6-14.8); White Blood Cell Count 6.1 X10^3/uL (4.5-11.0)
[2021-08-31 11:07] LABS: Alanine Aminotransferase 17 IU/L (<50); Albumin 4.4 g/dL (3.5-5.0); Albumin Globulin Ratio 1.4 (1.0-2.8); Alkaline Phosphatase 49 U/L (38-126); Aspartate Aminotransferase 27 IU/L (17-59); BUN Creatinine Ratio 21.1 (6-22); Bilirubin Total 0.6 mg/dL (0.2-1.3); Blood Urea Nitrogen 16 mg/dL (9-20); Carbon Dioxide 33 mmol/L (22-32); Chloride 101 mmol/L (98-107); Cholesterol 172 mg/dL (140-199); Estimated Glomerular Filt Rate > 60.0 mL/min (>60); Globulin 3.1 g/dL (1.7-4.1); Glucose 105 mg/dL (80-110); HDL Cholesterol 41 mg/dL (40-60); HEMOLYSIS < 15 (0-50); LDL Cholesterol Calculated 105 mg/dL (<100); Potassium 4.3 mmol/L (3.4-5.1); Sodium 139 mmol/L (137-145); Total Protein 7.5 g/dL (6.3-8.2); Triglycerides 129 mg/dL (35-150)
[2021-08-31 11:09] LABS: Free T4, Direct Thyroxine 1.13 ng/dL (0.78-2.19)
[2021-08-31 11:24] LABS: Thyroid Stimulating Hormone 3.75 uIU/mL (0.47-4.68)
[2021-08-31 11:26] LABS: Prostate Specific Antigen 4.67 ng/mL (0.10-4.00)
== END ==
PROVIDERS: Urology; PCP Family Medicine; Referring Provider Internal Medicine Cardiovascular Disease; Visit Provider Internal Medicine Cardiovascular Disease
DX: C61 Malignant neoplasm of prostate (principal); I10 Essential (primary) hypertension; E78.5 Hyperlipidemia, unspecified; Z86.73 Personal history of transient ischemic attack (TIA), and cerebral infarction without residual deficits; R00.2 Palpitations
CPT/HCPCS: 36415; 80053; 80061; 84153; 84439; 84443; 85025

== ENCOUNTER → 2021-09-12 14:59 | Outpatient (CLI) | payer MEDICARE, SELFPAY ==
[2021-09-12 17:03] LABS: Prostate Specific Antigen 3.33 ng/mL (0.10-4.00)
== END ==
PROVIDERS: PCP Family Medicine; Referring Provider Urology; Visit Provider Urology
DX: C61 Malignant neoplasm of prostate (principal); M81.8 Other osteoporosis without current pathological fracture; N40.1 Benign prostatic hyperplasia with lower urinary tract symptoms; R39.14 Feeling of incomplete bladder emptying; Z79.818 Long term (current) use of other agents affecting estrogen receptors and estrogen levels
CPT/HCPCS: 36415; 81002; 84153; 99213

== ENCOUNTER → 2021-10-09 11:53 | Outpatient (CLI) | payer MEDICARE, SELFPAY ==
[2021-10-09 15:10] LABS: COVID19 -Nasal RAPID Negative (Negative)
== END ==
PROVIDERS: PCP Family Medicine; Visit Provider Nurse Practitioner Family
DX: Z20.822 Contact with and (suspected) exposure to COVID-19 (principal)
CPT/HCPCS: 87635; C9803

== ENCOUNTER → 2021-10-10 09:14 | Outpatient (CLI) | payer MEDICARE, SELFPAY ==
--- NOTE | 2021-10-10 | DI.ECHO.S_ITS ---
[place] [place] [facility]---------+ [facility] +---------+ : : [address] : : : : [phone] : : : : Phone: [phone]+ Echocardiogram Report + + :Name: LESVIA RIOS Study Date: 10/10/2021 Height: 74 in : :[facility] ReadingLocation: Weight: 168 lb : : Gender: Male BSA: 2.0 m2 : :: 1935 Age: 85 yrs BP: 161/76 mmHg: :Reason For Study: VENTRICULAR PREMATURE DEPOLARIZATION : :Ordering Physician: REED, : :BRAYDEN Hernandez Performed By: Olesya Velazco : :Referring: BRAYDEN MCBRIDE : + + Interpretation Summary The left ventricle is normal in size. Left ventricular systolic function is normal. The ejection fraction is estimated to be 55-60%. There are no focal wall motion abnormalities. Diastolic parameters suggest a relaxation abnormality of the left ventricle, consistent with probable normal filling pressures. The right ventricle is normal in size and function. The right ventricular systolic pressure is estimated to be at least 36 mmHg based on an estimated right atrial pressure of 3 mm Hg. The left atrium is mildly dilated. Right atrial size is normal. There is mild aortic stenosis. The peak aortic velocity is 2.28 m/sec. There is fusion between the left and right coronar cusps. The ascending aorta is mildly enlarged. Procedure: A two-dimensional transthoracic echocardiogram with color flow and Doppler was performed. The study quality was technically adequate. There is no prior echocardiogram noted for this patient. The patient was in sinus rhythm with heart rates between 58-66 bpm during the exam. The patient had occasional PVCs during the exam. Left Ventricle: The left ventricle is normal in size. Left ventricular wall thickness is mildly increased. Left ventricular systolic function is normal. The ejection fraction is estimated to be 55-60%. There are no focal wall motion abnormalities. Diastolic parameters suggest a relaxation abnormality of the left ventricle, consistent with probable normal filling pressures. Right Ventricle: The right ventricle is normal in size and function. Atria: The left atrium is mildly dilated. Right atrial size is normal. There is no Doppler evidence for an interatrial shunt. Mitral Valve: There is mild to moderate mitral annular calcification. There is trace mitral regurgitation. Aortic Valve: The aortic valve is trileaflet. The aortic valve is mildly calcified. There is mild aortic valve sclerosis. There is mild aortic stenosis. The peak aortic velocity is 2.28 m/sec. The aortic valve mean gradient is 11 mmHg. The calculated aortic valve area is 1.6 cm2. There is fusion between the left and right coronar cusps. No aortic regurgitation is present. Tricuspid Valve: The tricuspid valve is normal in structure and function. There is mild tricuspid regurgitation. The right ventricular systolic pressure is estimated to be at least 36 mmHg based on an estimated right atrial pressure of 3 mm Hg. Pulmonic Valve: The pulmonic valve leaflets are thin and pliable; valve motion is normal. There is no pulmonic valvular regurgitation. Great Vessels: The aortic root is normal size. The ascending aorta is mildly enlarged. The IVC is of normal diameter and collapses greater than 50% with a sniff. This suggests a low right atrial pressure of 3 mm Hg. Pericardium/ Pleura There is no pericardial effusion. There is no pleural effusion. MMode/2D Measurements & Calculations LVIDd: 4.7 cm LVOT diam: 2.4 cm LVIDs: 3.1 cm Ao root diam: 3.6 cm FS: 33.9 % asc Aorta Diam: 3.7 cm IVSd: 1.1 cm Ao Arch Diam (Prox Trans): 2.9 cm LVPWd: 1.2 cm LV ramirez. diameter/BSA (cm/m^2): 2.3 LV sys. diameter/BSA (cm/m^2): 1.5 LA A2 area: 25.3 cm2 RA long axis: 6.0 cm LA A4 area: 16.9 cm2 RA area: 18.4 cm2 LA length (vol): 5.3 cm RA vol: 48.0 ml LA vol: 69.0 ml RA : 23.8 ml/m2 LA vol index: 34.2 ml/m2 IVC diam: 1.2 cm RVD1 (basal): 3.7 cm TAPSE: 1.7 cm Doppler Measurements & Calculations Ao V2 max: 228.6 cm/sec LVOT Max Dusty: 79.8 cm/sec Ao V2 mean: 152.2 cm/sec LV V1 max P.5 mmHg Ao max P.2 mmHg LV V1 VTI: 18.1 cm Ao mean P.1 mmHg MULU(I,D): 1.9 cm2 Ao V2 VTI: 44.9 cm MULU(V,D): 1.6 cm2 sev ratio: 0.40 MULU indexed to BSA (cm^2/m^2): 0.94 MV E max dusty: 58.4 cm/sec TR max dusty: 287.2 cm/sec MV A max dusty: 98.3 cm/sec TR max P.0 mmHg MV E/A: 0.59 PA V2 max: 129.7 cm/sec Med Peak E' Dusty: 4.2 cm/sec PA V2 mean: 97.2 cm/sec E/E' med: 14.1 PA mean P.1 mmHg Lat Peak E' Dusty: 6.2 cm/sec PA pr(Accel): 27.6 mmHg E/E' lat: 9.4 E/e' average: 11.7 MV dec time: 0.35 sec SV(LVOT): 85.0 ml Reading Physician:12:08 PM
--- NOTE | 2021-10-10 15:23 | PM.TREADMILL ---
Cardiac Stress Test Report Referral & Results Indication: premature ventricular contractions Rest ECG: sinus rhythm 1st degree av block, pvc Procedure Note: walking renato Impression: patient unable to complete treadmill test since he could not keep up with pace of treadmill. after renato inj he had minimal dyspnea, no chest discomfort, baseline ecg sinus rhythm with 1st degree AV block, non specific st abnormalities, no significant st changes after renato inj compared to baseline. frequent PVCs, occassional PAC. MIBI scan pending, sales representative advertising to review. Jason MIKE Please note: Actual ECG tracings can be found in the PACS system.
--- NOTE | 2021-10-10 18:14 | DI.NM.S_ITS ---
DATE OF SERVICE: PROCEDURE: Pharmacological perfusion study. DATE OF STUDY: 10/10/2021 INDICATIONS: PVCs. RADIOPHARMACEUTICAL: 25.0 millicurie technetium-99m Myoview IV was injected at stress and 12.6 millicurie technetium-99m Myoview IV was injected at rest. CARDIAC STRESS: The patient underwent initially exercise perfusion study protocol. However, was only able to walk for about 1 minute and 30 seconds. He could not keep up with the pace of treadmill hence treadmill was discontinued. The patient was given intravenous Lexiscan as per standard protocol. He remained hemodynamically stable. Baseline blood pressure 142/82 and heart rate 79 beats per minute. No chest discomfort. Baseline rhythm was sinus with first- degree AV block and intermittent frequent PVCs. During exercise, PVCs did not get worse. During Lexiscan, PVCs did not get worse. They reappeared in recovery. No sustained ventricular tachycardia. Occasional PVCs. RAW DATA: There is increased subdiaphragmatic activity. GATED STUDY: Resting LV ejection fraction 65 percent and stress LV ejection fraction 70 percent. Resting end-diastolic volume 89 mL. TID ratio 1.02, which is within normal limits. Lung/heart ratio 0.27, which is within normal limits. MYOCARDIAL PERFUSION SCAN: Stress supine and resting supine images were compared to each other. Resting supine images revealed a small size, moderately decreased perfusion of basal inferior wall extending into the basal inferolateral wall. However, stress supine images revealed normal myocardial perfusion. No obvious ischemia or infarction pattern. CONCLUSION: I will call this study a normal myocardial perfusion study as stress supine images revealed normal myocardial perfusion. Preserved left ventricular function. Baseline frequent intermittent monomorphic PVCs without any worsening during stress. No sustained ventricular tachycardia seen. As far as perfusion scan is concerned, this is a low-risk myocardial perfusion scan. Vic Gomez - LUKAS/praveen/jose rafael doc#: [id number]/job#: [id number] dd: 10/10/2021 16:57:00 dt: 10/10/2021 18:02:00 DICTATING MD/COPIES TO: Benjamin Marino MD COPIES MNE: JEANE;
== END ==
PROVIDERS: PCP Family Medicine; Referring Provider Internal Medicine Cardiovascular Disease; Visit Provider Internal Medicine Cardiovascular Disease
DX: I49.3 Ventricular premature depolarization (principal)
CPT/HCPCS: 78452; 93017; 93306; A9502; J2785

== ENCOUNTER → 2021-10-26 14:41 | Outpatient (CLI) | payer MEDICARE, SELFPAY ==
[2021-10-26 16:19] LABS: Prostate Specific Antigen 1.25 ng/mL (0.10-4.00)
== END ==
PROVIDERS: PCP Family Medicine; Referring Provider Urology; Visit Provider Urology
DX: C61 Malignant neoplasm of prostate (principal); M81.8 Other osteoporosis without current pathological fracture; R35.1 Nocturia; Z79.818 Long term (current) use of other agents affecting estrogen receptors and estrogen levels
CPT/HCPCS: 36415; 51798; 81002; 84153; 96372; 96402; 99214; J0897; J9217

== ENCOUNTER 2022-01-02 09:57 | Emergency (ER) | payer MEDICARE, SELFPAY ==
[2022-01-02] VITALS (12 sets, daily range): BP systolic 112–151; BP diastolic 58–87; PULSE 54–79; RESP 12–32; TEMP 37; O2SAT 95–98; BMI 22.0
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
[2022-01-02] MEDS: SODIUM CHLORIDE 0.9% 1,000 ML 1000 ML IV (10:30)
[2022-01-02 10:40] LABS: Add Manual Diff / Slide Review NO; Basophils Absolute Auto 0 /uL (0-100); Basophils Percent Auto 0.6 % (0-2); Eosinophils Absolute Auto 100 /uL (0-450); Eosinophils Percent Auto 1.1 % (2-4); Hematocrit 38.9 % (41-53); Hemoglobin 13.5 g/dL (13.5-17.5); Lymphocytes Absolute Auto 1100 /uL (1100-4500); Lymphocytes Percent Auto 21.6 % (25-40); Mean Corpuscular HGB Conc 34.8 % (30-36); Mean Corpuscular Hemoglobin 29.8 PG (26-34); Mean Corpuscular Volume 85.6 fL (80-100); Monocytes Absolute Auto 700 /uL (0-900); Monocytes Percent Auto 13.4 % (3-14); Neutrophils Absolute Auto 3200 /uL (1500-7000); Neutrophils Percent Auto 63.3 % (50-75); Platelet Count 204 X10^3/uL (150-400); Red Blood Cell Count 4.54 X10^6/uL (4.5-5.9); Red Cell Distribution Width 13.3 % (11.6-14.8)
[2022-01-02 10:52] LABS: Alanine Aminotransferase 20 IU/L (<50); Albumin Globulin Ratio 1.4 (1.0-2.8); Alkaline Phosphatase 40 U/L (38-126); Aspartate Aminotransferase 30 IU/L (17-59); BUN Creatinine Ratio 21.5 (6-22); Bilirubin Total 0.9 mg/dL (0.2-1.3); Blood Urea Nitrogen 14 mg/dL (9-20); Calcium 8.3 mg/dL (8.4-10.2); Carbon Dioxide 27 mmol/L (22-32); Chloride 101 mmol/L (98-107); Estimated Glomerular Filt Rate > 60 mL/min (>60); Globulin 2.8 g/dL (1.7-4.1); Glucose 124 mg/dL (80-110); HEMOLYSIS < 15 (0-50); Lipase 53 U/L (23-300); Magnesium 2.3 mg/dL (1.6-2.3); Potassium 2.9 mmol/L (3.4-5.1); Sodium 132 mmol/L (137-145); Total Protein 6.8 g/dL (6.3-8.2)
[2022-01-02 11:06] LABS: COVID19 -Nasal RAPID Negative (Negative)
[2022-01-02] MEDS: POTASSIUM CHLORIDE 20 MEQ/15 ML UDC 40 MEQ PO (11:29)
[2022-01-02] MEDS: POTASSIUM CHLORIDE 20 MEQ TAB 40 MEQ PO (11:29)
[2022-01-02 17:14] LABS: Adenovirus F 40/41 Not Detected (Not Detect); Astrovirus Not Detected (Not Detect); Campylobacter Not Detected (Not Detect); Clostridium difficile toxin AB Not Detected (Not Detect); Cryptosporidium Not Detected (Not Detect); Cyclospora cayetanensis Not Detected (Not Detect); Entamoeba histolytica Not Detected (Not Detect); Enteroaggregative E.coli Not Detected (Not Detect); Enteropathogenic E.coli Not Detected (Not Detect); Enterotoxigenic E.coli It/st Not Detected (Not Detect); Giardia lamblia Not Detected (Not Detect); Norovirus GI/GII Not Detected (Not Detect); Plesiomonsa shigelloides Not Detected (Not Detect); Rotavirus A Not Detected (Not Detect); Salmonella Not Detected (Not Detect); Sapovirus Not Detected (Not Detect); Shiga-like toxin-prod E.coli Not Detected (Not Detect); Shigella/Enteroinvasive E.coli Not Detected (Not Detect); Vibrio Not Detected (Not Detect); Vibrio cholerae Not Detected (Not Detect); Yersinia enterocolitica Not Detected (Not Detect)
== END 2022-01-02 18:25 | disposition home or self-care (01) ==
PROVIDERS: Emergency Provider Emergency Medicine; PCP Family Medicine
DX: R19.7 Diarrhea, unspecified (principal); E87.6 Hypokalemia; Z20.822 Contact with and (suspected) exposure to COVID-19
CPT/HCPCS: 36415; 80053; 83690; 83735; 85025; 87507; 87635; 93005; 93010; 99284; C9803

== ENCOUNTER → 2022-01-09 13:51 | Outpatient (CLI) | payer MEDICARE, SELFPAY ==
--- NOTE | 2022-01-09 | DI.US.S_ITS ---
PROCEDURE: US RETRO PERITONEAL LIMITED INDICATIONS: AAA SCREENING TECHNIQUE: Real time scanning was performed of the aorta and iliac arteries, with image documentation. COMPARISON: None. FINDINGS: Aorta: Proximal aortic diameter measures 2.7 cm. Mid-aorta measures 1.5 cm. Distal aortic diameter is 1.3 cm. Iliac arteries: Right common iliac artery measures 0.7 cm. Left common iliac artery measures 0.9 cm. IMPRESSION: Ectasia of the proximal aorta. 5 year follow-up ultrasound recommended. Dictated by: Mariano ZIMMER Interpreted: Jessica Suazo MD on 01/09/2022 at 15:20 Transcribed by: OCTAVIO on 01/09/2022 at 15:20 Approved by: Jessica Suazo M.D. on 02/08/2022 at 8:30
== END ==
PROVIDERS: PCP Family Medicine; Referring Provider Internal Medicine Cardiovascular Disease; Visit Provider Internal Medicine Cardiovascular Disease
DX: Z13.6 Encounter for screening for cardiovascular disorders (principal); I77.811 Abdominal aortic ectasia; Z87.891 Personal history of nicotine dependence
CPT/HCPCS: 76775

== ENCOUNTER → 2022-01-24 14:32 | Outpatient (CLI) | payer MEDICARE, SELFPAY ==
[2022-01-24 15:38] LABS: Prostate Specific Antigen 0.451 ng/mL (0.10-4.00)
== END ==
PROVIDERS: PCP Family Medicine; Referring Provider Urology; Visit Provider Urology
DX: C61 Malignant neoplasm of prostate (principal)
CPT/HCPCS: 36415; 84153

== ENCOUNTER → 2022-04-25 09:41 | Outpatient (CLI) | payer MEDICARE, SELFPAY ==
[2022-04-25 12:57] LABS: Prostate Specific Antigen 0.339 ng/mL (0.10-4.00)
== END ==
PROVIDERS: PCP Family Medicine; Referring Provider Urology; Visit Provider Urology
DX: C61 Malignant neoplasm of prostate (principal)
CPT/HCPCS: 36415; 84153

== ENCOUNTER → 2022-07-27 09:28 | Outpatient (CLI) | payer MEDICARE, SELFPAY ==
[2022-07-27 12:18] LABS: Prostate Specific Antigen 0.303 ng/mL (0.10-4.00)
== END ==
PROVIDERS: PCP Family Medicine; Referring Provider Urology; Visit Provider Urology
DX: C61 Malignant neoplasm of prostate (principal)
CPT/HCPCS: 36415; 84153

== ENCOUNTER → 2022-09-27 12:31 | Outpatient (CLI) | payer MEDICARE, SELFPAY ==
[2022-09-27 14:20] LABS: TSH w/ Reflex to FT4 2.41 uIU/mL (0.47-4.68)
[2022-09-27 14:54] LABS: Folate > 20.0 ng/mL (2.76-20.0); Vitamin B12 679 pg/mL (239-931)
[2022-09-27 15:29] LABS: Vitamin D 25 Hydroxy (D3) 57.3 ng/mL (30.0-100.0)
== END ==
PROVIDERS: PCP Family Medicine; Referring Provider Psychiatry & Neurology Neurology; Visit Provider Psychiatry & Neurology Neurology
DX: R41.3 Other amnesia (principal); E55.9 Vitamin D deficiency, unspecified
CPT/HCPCS: 36415; 82306; 82607; 82746; 84443

== ENCOUNTER → 2022-09-30 13:37 | Outpatient (CLI) | payer MEDICARE, SELFPAY ==
--- NOTE | 2022-09-30 13:39 | DI.MRI.S_ITS ---
PROCEDURE: MR HEAD/BRAIN WO CON INDICATIONS: Memory loss TECHNIQUE: Noncontrast axial T1 spin echo, axial T2 fast spin echo, sagittal and axial FLAIR, coronal T2 fast spin echo, axial gradient echo, axial diffusion and ADC through the brain. COMPARISON: None. FINDINGS: Advanced moderate to severe global cerebral volume loss with passive expansion of the ventricular system and extra-axial spaces. Severe chronic microvascular ischemic changes. No restricted diffusion to indicate recent/acute infarct. No unexpected intracranial susceptibility. The major intracranial vascular flow-related signal voids are maintained. Midline structures normal in configuration. No mass effect or midline shift. Basilar cisterns patent. No gross orbital abnormality. Paranasal sinuses predominantly clear. Small left mastoid air cell effusion. IMPRESSION: Advanced moderate to severe global cerebral volume loss with severe chronic microvascular ischemic changes. No acute finding. Dictated by: Yakov Nair M.D. on 10/01/2022 at 8:48 Approved by: Yakov Nair M.D. on 10/01/2022 at 8:50
== END ==
PROVIDERS: PCP Family Medicine; Referring Provider Psychiatry & Neurology Neurology; Visit Provider Psychiatry & Neurology Neurology
DX: H91.93 Unspecified hearing loss, bilateral (principal); R44.3 Hallucinations, unspecified; R41.3 Other amnesia
CPT/HCPCS: 70551

== ENCOUNTER → 2022-10-25 12:23 | Outpatient (CLI) | payer MEDICARE, SELFPAY ==
[2022-10-25 14:22] LABS: Prostate Specific Antigen 0.348 ng/mL (0.10-4.00)
== END ==
PROVIDERS: PCP Family Medicine; Referring Provider Urology; Visit Provider Urology
DX: C61 Malignant neoplasm of prostate (principal); N40.0 Benign prostatic hyperplasia without lower urinary tract symptoms; R39.9 Unspecified symptoms and signs involving the genitourinary system; Z79.818 Long term (current) use of other agents affecting estrogen receptors and estrogen levels
CPT/HCPCS: 36415; 84153

== ENCOUNTER → 2023-01-24 11:43 | Outpatient (CLI) | payer MEDICARE, SELFPAY ==
[2023-01-24 14:03] LABS: BUN Creatinine Ratio 24.6 (6-22); Blood Urea Nitrogen 15 mg/dL (9-20); Carbon Dioxide 27 mmol/L (22-32); Chloride 102 mmol/L (98-107); Estimated Glomerular Filt Rate > 60 mL/min (>60); Glucose 111 mg/dL (80-110); HEMOLYSIS < 15 (0-50); Magnesium 2.2 mg/dL (1.6-2.3); Potassium 3.8 mmol/L (3.4-5.1); Sodium 137 mmol/L (137-145)
[2023-01-24 14:29] LABS: Prostate Specific Antigen 0.287 ng/mL (0.10-4.00)
== END ==
PROVIDERS: PCP Family Medicine; Referring Provider Internal Medicine Cardiovascular Disease; Visit Provider Urology
DX: C61 Malignant neoplasm of prostate (principal); I49.3 Ventricular premature depolarization
CPT/HCPCS: 36415; 80048; 83735; 84153

== ENCOUNTER → 2023-02-27 14:56 | Outpatient (CLI) | payer MEDICARE, SELFPAY ==
[2023-02-27 15:56] LABS: Add Manual Diff / Slide Review NO; Basophils Absolute Auto 0 /uL (0-100); Basophils Percent Auto 0.6 % (0-2); Eosinophils Absolute Auto 100 /uL (0-450); Eosinophils Percent Auto 1.8 % (2-4); Lymphocytes Absolute Auto 2300 /uL (1100-4500); Lymphocytes Percent Auto 35.3 % (25-40); Mean Corpuscular HGB Conc 34.3 % (30-36); Mean Corpuscular Hemoglobin 29.3 PG (26-34); Mean Corpuscular Volume 85.5 fL (80-100); Monocytes Absolute Auto 400 /uL (0-900); Monocytes Percent Auto 6.8 % (3-14); Neutrophils Absolute Auto 3700 /uL (1500-7000); Neutrophils Percent Auto 55.5 % (50-75); Platelet Count 234 X10^3/uL (150-400); Red Blood Cell Count 4.44 X10^6/uL (4.5-5.9); Red Cell Distribution Width 13.4 % (11.6-14.8); White Blood Cell Count 6.6 X10^3/uL (4.5-11.0)
[2023-02-27 16:22] LABS: Alanine Aminotransferase 18 IU/L (<50); Albumin 4.2 g/dL (3.5-5.0); Albumin Globulin Ratio 1.7 (1.0-2.8); Alkaline Phosphatase 29 U/L (38-126); Aspartate Aminotransferase 26 IU/L (17-59); BUN Creatinine Ratio 22.4 (6-22); Bilirubin Total 0.4 mg/dL (0.2-1.3); Blood Urea Nitrogen 13 mg/dL (9-20); Calcium 9.5 mg/dL (8.4-10.2); Carbon Dioxide 28 mmol/L (22-32); Chloride 100 mmol/L (98-107); Cholesterol 149 mg/dL (140-199); Estimated Glomerular Filt Rate > 60 mL/min (>60); Globulin 2.5 g/dL (1.7-4.1); Glucose 104 mg/dL (80-110); HDL Cholesterol 40 mg/dL (40-60); HEMOLYSIS < 15 (0-50); LDL Cholesterol Calculated 77 mg/dL (<100); Magnesium 2.3 mg/dL (1.6-2.3); Potassium 4.3 mmol/L (3.4-5.1); Sodium 135 mmol/L (137-145); Total Protein 6.7 g/dL (6.3-8.2); Triglycerides 162 mg/dL (35-150)
[2023-02-28 05:13] LABS: Labcorp Hemoglobin (Hb) A1c 5.9 % (4.8-5.6)
== END ==
PROVIDERS: PCP Family Medicine; Referring Provider Family Medicine; Visit Provider Family Medicine
DX: I49.3 Ventricular premature depolarization (principal); E78.2 Mixed hyperlipidemia; I10 Essential (primary) hypertension; R73.03 Prediabetes
CPT/HCPCS: 36415; 80053; 80061; 83036; 83735; 85025

== ENCOUNTER → 2023-04-25 12:04 | Outpatient (CLI) | payer MEDICARE, SELFPAY ==
[2023-04-25 12:52] LABS: Add Manual Diff / Slide Review NO; Basophils Absolute Auto 0 /uL (0-100); Basophils Percent Auto 0.4 % (0-2); Eosinophils Absolute Auto 200 /uL (0-450); Eosinophils Percent Auto 2.7 % (2-4); Hematocrit 38.6 % (41-53); Hemoglobin 13.2 g/dL (13.5-17.5); Lymphocytes Absolute Auto 2000 /uL (1100-4500); Mean Corpuscular HGB Conc 34.2 % (30-36); Mean Corpuscular Hemoglobin 29.6 PG (26-34); Mean Corpuscular Volume 86.4 fL (80-100); Monocytes Absolute Auto 500 /uL (0-900); Monocytes Percent Auto 8.5 % (3-14); Neutrophils Absolute Auto 3400 /uL (1500-7000); Neutrophils Percent Auto 55.4 % (50-75); Platelet Count 228 X10^3/uL (150-400); Red Blood Cell Count 4.47 X10^6/uL (4.5-5.9); Red Cell Distribution Width 13.9 % (11.6-14.8); White Blood Cell Count 6.2 X10^3/uL (4.5-11.0)
[2023-04-25 14:17] LABS: Alanine Aminotransferase 18 IU/L (<50); Albumin 4.3 g/dL (3.5-5.0); Albumin Globulin Ratio 1.6 (1.0-2.8); Alkaline Phosphatase 26 U/L (38-126); Aspartate Aminotransferase 25 IU/L (17-59); BUN Creatinine Ratio 22.7 (6-22); Bilirubin Total 0.7 mg/dL (0.2-1.3); Blood Urea Nitrogen 15 mg/dL (9-20); Calcium 10.1 mg/dL (8.4-10.2); Carbon Dioxide 30 mmol/L (22-32); Chloride 99 mmol/L (98-107); Cholesterol 162 mg/dL (140-199); Estimated Glomerular Filt Rate > 60 mL/min (>60); Globulin 2.7 g/dL (1.7-4.1); Glucose 108 mg/dL (80-110); HDL Cholesterol 44 mg/dL (40-60); HEMOLYSIS < 15 (0-50); LDL Cholesterol Calculated 93 mg/dL (<100); Potassium 4.4 mmol/L (3.4-5.1); Sodium 136 mmol/L (137-145); Triglycerides 127 mg/dL (35-150)
[2023-04-25 16:16] LABS: Prostate Specific Antigen 0.291 ng/mL (0.10-4.00)
== END ==
PROVIDERS: Urology; PCP Family Medicine; Referring Provider Family Medicine; Visit Provider Family Medicine
DX: C61 Malignant neoplasm of prostate (principal); E78.5 Hyperlipidemia, unspecified; R73.03 Prediabetes; I10 Essential (primary) hypertension
CPT/HCPCS: 36415; 80053; 80061; 84153; 85025

== ENCOUNTER → 2023-07-25 12:30 | Outpatient (CLI) | payer MEDICARE, SELFPAY ==
[2023-07-25 14:57] LABS: Prostate Specific Antigen 0.266 ng/mL (0.10-4.00)
== END ==
PROVIDERS: PCP Family Medicine; Referring Provider Urology; Visit Provider Urology
DX: C61 Malignant neoplasm of prostate (principal)
CPT/HCPCS: 36415; 84153

== ENCOUNTER → 2023-10-24 12:15 | Outpatient (CLI) | payer MEDICARE, SELFPAY ==
[2023-10-24 14:32] LABS: Prostate Specific Antigen 0.279 ng/mL (0.10-4.00)
== END ==
PROVIDERS: PCP Family Medicine; Referring Provider Urology; Visit Provider Urology
DX: C61 Malignant neoplasm of prostate (principal)
CPT/HCPCS: 36415; 84153

== ENCOUNTER → 2024-01-27 12:28 | Outpatient (CLI) | payer MEDICARE, SELFPAY ==
[2024-01-27 16:09] LABS: Prostate Specific Antigen 0.277 ng/mL (0.10-4.00)
== END ==
PROVIDERS: PCP Family Medicine; Referring Provider Urology; Visit Provider Urology
DX: C61 Malignant neoplasm of prostate (principal)
CPT/HCPCS: 36415; 84153

== ENCOUNTER → 2024-07-29 13:33 | Outpatient (CLI) | payer MEDICARE, SELFPAY ==
[2024-07-29 15:39] LABS: Prostate Specific Antigen 0.412 ng/mL (0.10-4.00)
== END ==
PROVIDERS: PCP Family Medicine; Referring Provider Urology; Visit Provider Urology
DX: C61 Malignant neoplasm of prostate (principal)
CPT/HCPCS: 36415; 84153

== ENCOUNTER 2024-09-03 11:15 | Emergency (ER) | payer MEDICARE, SELFPAY ==
[2024-09-03] VITALS (32 sets, daily range): BP systolic 145–217; BP diastolic 65–140; PULSE 56–95; RESP 14–35; TEMP 36.4; O2SAT 87–100; BMI 18.6
[2024-09-03 11:37] LABS: Add Manual Diff / Slide Review NO; Basophils Absolute Auto 100 /uL (0-100); Basophils Percent Auto 1.1 % (0-2); Eosinophils Absolute Auto 0 /uL (0-450); Eosinophils Percent Auto 0.2 % (2-4); Hematocrit 39.2 % (41-53); Hemoglobin 13.2 g/dL (13.5-17.5); Lymphocytes Absolute Auto 1100 /uL (1100-4500); Lymphocytes Percent Auto 17.7 % (25-40); Mean Corpuscular HGB Conc 33.7 % (30-36); Mean Corpuscular Hemoglobin 29.2 PG (26-34); Mean Corpuscular Volume 86.6 fL (80-100); Monocytes Absolute Auto 500 /uL (0-900); Monocytes Percent Auto 8.4 % (3-14); Neutrophils Absolute Auto 4400 /uL (1500-7000); Neutrophils Percent Auto 72.6 % (50-75); Platelet Count 301 X10^3/uL (150-400); Red Blood Cell Count 4.53 X10^6/uL (4.5-5.9); Red Cell Distribution Width 14.6 % (11.6-14.8); White Blood Cell Count 6.1 X10^3/uL (4.5-11.0)
[2024-09-03 11:44] LABS: INR 1.1 (0.9-1.3)
[2024-09-03 11:47] LABS: Alanine Aminotransferase 413 IU/L (<50); Albumin 3.8 g/dL (3.5-5.0); Albumin Globulin Ratio 1.1 (1.0-2.8); Alkaline Phosphatase 403 U/L (38-126); Aspartate Aminotransferase 380 IU/L (17-59); Bilirubin Total 10.5 mg/dL (0.2-1.3); Blood Urea Nitrogen 18 mg/dL (9-20); Calcium 8.6 mg/dL (8.4-10.2); Carbon Dioxide 23 mmol/L (22-32); Chloride 103 mmol/L (98-107); Estimated Glomerular Filt Rate > 60 mL/min (>60); Globulin 3.5 g/dL (1.7-4.1); Glucose 121 mg/dL (80-110); HEMOLYSIS < 15 (0-50); Lipase 1560 U/L (23-300); Sodium 134 mmol/L (137-145); Total Protein 7.3 g/dL (6.3-8.2)
--- NOTE | 2024-09-03 12:05 | DI.US.S_ITS ---
PROCEDURE: US ABDOMEN LIMITED INDICATIONS: jaundice, elevated lfts, lipase TECHNIQUE: Real-time scanning was performed of the abdominal and retroperitoneal organs, with image documentation. COMPARISON: None. FINDINGS: Liver: Liver is normal in size and homogeneous in echotexture. Gallbladder: Mobile foci of echogenicity are present. The wall is thickened measuring 5 mm. No pericholecystic fluid. Biliary ducts: Intrahepatic bile ducts are non-dilated. Extrahepatic bile duct caliber measures 9 mm. Normal is 6-7 mm or less in diameter, or 10 mm or less post-cholecystectomy. There is appearance of stone within the cystic duct. Pancreas: Visualized portions of the pancreas are sonographically normal. Miscellaneous: No free abdominal fluid. IMPRESSION: Cholelithiasis with wall thickening suggestive cholecystitis. In addition, there appears to be stone in the cystic duct. MRCP is recommended Dictated by: Pauly Stevens M.D. on 09/03/2024 at 13:20 Approved by: Pauly Stevens M.D. on 09/03/2024 at 13:24
[2024-09-03 13:21] LABS: Appearance Urine UA SL CLOUDY; Bilirubin Urine UA 3+ (NEGATIVE); Color Urine UA BROWN; Glucose Urine UA TRACE g/dL (Negative); Ketones Urine UA TRACE (NEGATIVE); Leukocyte Esterase Urine UA NEGATIVE (NEGATIVE); Nitrite Urine UA POSITIVE (Negative); Occult Blood Urine UA NEGATIVE (Negative); Protein Urine UA 1+ (Negative); Specific Gravity Urine UA 1.025 (1.000-1.035)
[2024-09-03] MEDS: POTASSIUM CHLORIDE 20 MEQ TAB 40 MEQ PO (13:23)
[2024-09-03 13:33] LABS: Bacteria Urine Few (2-10); Culture Indicated Urine Specimen Cultured; Ictotest Urine Positive (Negative); Mucus Urine 2+ (Negative); RBC Urine 1-5/HPF (0-5/HPF); Squamous Epithelial Cell Urine 1-5 /HPF (0-5/HPF); Urine Volume 10mL (spun); WBC Urine 5-10/HPF (0-5/HPF)
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
--- NOTE | 2024-09-03 14:29 | DI.MRI.S_ITS ---
PROCEDURE: MR ABDOMEN WO/W CON INDICATIONS: painless jaundice TECHNIQUE: Coronal HASTE, axial 2D FLASH in- and [id number]; axial breath-hold T2 FSE. Dynamic axial VIBE during the administration of contrast; post-contrast coronal VIBE or 2D FLASH with fat saturation from the hepatic dome to the iliac crests. Optional diffusion weighted imaging and ADC may be performed. COMPARISON: [facility], US, US ABDOMEN LIMITED, 09/03/2024, 12:19. FINDINGS: Image quality: Diagnostic. Lung bases: Unremarkable. Liver: No solid mass. Gallbladder: Gallbladder is distended. Gallstone measuring 1.3 cm. No pericholecystic fluid. Biliary ducts: CBD measures 1.3 cm. There is an abrupt cut off at the distal CBD. There is intrahepatic biliary ductal dilatation. Pancreas: Pancreatic ductal dilatation measuring 0.8 cm at the body, (09/03). Duct at the uncinate process is also dilated. Heterogeneous enhancement near the sphincter of Oddi. No restricted diffusion. Multiple small pancreatic cysts. For example: -Distal tail measuring 1 cm, (4/8). -Body measuring 1.7 cm, (4/5). -Anterior pancreatic head measuring 0.6 cm, (4/12) Spleen: Size is within normal limits. Adrenal Glands: No adrenal nodules. Kidneys and Ureters: No convincing hydronephrosis. Multiple peripelvic cysts. No solid mass. No complex renal cystic lesion which requires follow up. Stomach and Bowel: Stomach or duodenum are not distended. No small bowel obstruction. The appendix is not identified. Colonic diverticuli. Peritoneum: No abnormal intraperitoneal fluid. Ventral Wall: No hernia. Abdominal Nodes: No retroperitoneal or mesenteric adenopathy by size criteria. Vessels: Aorta and inferior vena cava are normal in size. Bones: No aggressive osseous abnormality. Scoliosis. IMPRESSION: 1. Biliary and pancreatic ductal dilatation. Abrupt cut off of the distal CBD. 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 -Recommend ERCP. -CT pancreas may be helpful for further evaluation. 2. Several small pancreatic cysts. Larger cyst in the body measuring 1.7 cm. 3. Distended gallbladder. Gallstone. No pericholecystic fluid. 4. No metastatic disease identified. Comment: Findings were discussed with Eun Gil at 4:30 p.m. Dictated by: Stephon Lee M.D. on 09/03/2024 at 16:11 Approved by: Stephon Lee M.D. on 09/03/2024 at 16:33
[2024-09-03] MEDS: PIPERACILLIN/TAZO 4.5 GM in SODIUM CHLORIDE 0.9% 100 ML IV (15:41)
--- NOTE | 2024-09-03 18:31 | PC.NURSE ---
@ [facility] accepted patient @ 0107
[2024-09-03] MEDS: carvediloL 12.5 MG TABLET 25 MG PO (19:48)
[2024-09-03] MEDS: TAMSULOSIN 0.4 MG CAPSULE PO (19:55)
[2024-09-03] MEDS: ATORVASTATIN 20 MG TABLET 40 MG PO (19:55)
== END 2024-09-03 22:05 | disposition short-term general hospital (02) ==
PROVIDERS: Emergency Provider Emergency Medicine; PCP Family Medicine
DX: R17 Unspecified jaundice (principal); K85.90 Acute pancreatitis without necrosis or infection, unspecified; K80.51 Calculus of bile duct without cholangitis or cholecystitis with obstruction; F03.90 Unspecified dementia, unspecified severity, without behavioral disturbance, psychotic disturbance, mood disturbance, and anxiety; E78.5 Hyperlipidemia, unspecified; C61 Malignant neoplasm of prostate
CPT/HCPCS: 36415; 74183; 76705; 80053; 81001; 83690; 85025; 85610; 87086; 96365; 99284; 99285; A9579; J2543